=== PATIENT | male | born 1970 | race African-American/Black ===

== ENCOUNTER → 2018-02-25 | Day surgery (SDC) | payer MEDICARE, MEDICAID ==
[2018-02-24 09:08] VITALS: BMI 20.3
[~2018-02-25] MED LIST: Midazolam HCl 2 mg/2 ml Vial ONE; PROPOFOL 200 MG/20 ML VIAL ONE
--- NOTE | 2018-02-25 15:41 | MRI ---
BRAIN MRI WITH AND WITHOUT CONTRAST: Date: 02/25/18 HISTORY: New onset seizure. High fevers at . 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 Unspecified nystagmus. COMPARISON: None. TECHNIQUE: Brain MRI is performed with and without intravenous Gadolinium administration. Multisequential, multi planar imaging is performed. FINDINGS: Calvarium has a normal T1 marrow signal intensity. Midline brain parenchymal structures are unremarka ble. No parenchymal mass, mass effect, or midline shift. Brain volume is age-appropriate. Cortical villalobos-wh ite matter differentiation is preserved. Ventricles and sulci appear to be patent and symmetric. Note is made of a partially empty sella. Central arterial flow-voids are maintained. Absent restricted diffusion. Minimal white matter hyperintensities on the coronal FLAIR sequence are nonspecific and may be due to chronic small vessel ischemic change. No hemorrhage on the coronal GRE images. Visualized optic chiasm and prechiasmatic optic nerves are unremarkable.. No pathologic enhancement of the brain parenchyma. IMPRESSION: 1. No pathologic enhancement of the brain parenchyma. POS: ELI
== END ==
LOC: SDC/OP 10:23
PROVIDERS: ATTEND Family Medicine
DX: G40.209 Localization-related (focal) (partial) symptomatic epilepsy and epileptic syndromes with complex partial seizures, not intractable, without status epilepticus (principal); H55.00 Unspecified nystagmus; Z79.899 Other long term (current) drug therapy; Z88.0 Allergy status to penicillin
CPT/HCPCS: 70553; J2250; J2704

== ENCOUNTER 2018-03-28 10:13 | Day surgery (SDC) | payer MEDICARE, MEDICAID ==
[2018-03-27 13:26] VITALS: BMI 20.1
[2018-03-28] MEDS ORDERED: Midazolam HCl 2 mg/2 ml Vial ONE (11:15)
--- NOTE | 2018-03-28 13:57 | CT ---
NONCONTRAST CT LUMBAR SPINE: Date: 03/28/18 HISTORY: Abnormality of gait. Wheelchair bound. TECHNIQUE: Contiguous axial CT images are obtained through the lumbar spine from the T12-L1 level to the upper s acrum. Sagittal and coronal reformatted images are provided. FINDINGS: There is a nonobstructing inferior pole left renal calculus measuring 4.0 mm. Remainder of the retrop eritoneal structures demonstrate a grossly normal nonenhanced CT appearance. There are scattered Schmorl's nodes seen within the lumbar vertebral bodies. Vertebral body heights a re within normal limits. There is no fracture or subluxation seen involving the lumbar spine. L1-2 Level: There is a mild disc osteophyte complex which only results in slight effacement of the v entral aspect of the thecal sac. Neural foramina are patent. L2-3 Level: There is a mild disc osteophyte complex present. This results in mild effacement of the ventral aspect of the thecal sac, but the neural foramina are patent. L3-4 Level: There is a mild broad based disc osteophyte complex with mild facet degenerative changes . There is generalized narrowing of the central spinal canal. There is mild bilateral neural foramina l narrowing present. L4-5 Level: There is a broad based disc osteophyte complex and mild facet degenerative changes. Gene ralized narrowing of central spinal canal. Findings result in mild to moderate bilateral neural marian inal narrowing. L5-S1 Level: There is a mild disc osteophyte complex with facet hypertrophic change and ligamentous thickening. Generalized mild narrowing of the central spinal canal. There is encroachment on the bila teral traversing S1 nerve roots. Mild to moderate bilateral neural foraminal narrowing is present. IMPRESSION: 1. Degenerative changes throughout the lumbar spine, greatest involving the lower lumbar spine. 2. Nonobstructing left renal calculus. POS: WALTER
== END 2018-03-28 13:48 | disposition home or self-care (01) ==
LOC: SDC/OP 10:13
PROVIDERS: ATTEND Family Medicine
DX: R26.9 Unspecified abnormalities of gait and mobility (principal); M51.46 Schmorl's nodes, lumbar region; M48.061 Spinal stenosis, lumbar region without neurogenic claudication; M25.78 Osteophyte, vertebrae; N20.0 Calculus of kidney; Z79.899 Other long term (current) drug therapy; Z88.0 Allergy status to penicillin; Z99.3 Dependence on wheelchair
CPT/HCPCS: 72131; J2250

== ENCOUNTER 2018-11-27 15:48 | Outpatient (CLI) | payer MEDICARE, MEDICAID ==
--- NOTE | 2018-11-27 17:07 | RAD ---
EXAM: CHEST TWO VIEWS: 11/27/18 HISTORY: Dyspnea, primary spontaneous pneumothorax. Postoperative changes are noted in the right chest. Minimal blunting of the right costophrenic angle. No evidence for significant pneumothorax. Heart size is normal. The left lung is clear. IMPRESSION: Postoperative changes right chest with some blunting of the right costophrenic angle without signific ant pneumothorax. POS: WALTER
== END 2018-11-27 15:49 | disposition home or self-care (01) ==
LOC: RAD 15:48
PROVIDERS: ATTEND Thoracic Surgery (Cardiothoracic Vascular Surgery)
DX: J93.11 Primary spontaneous pneumothorax (principal); Z98.890 Other specified postprocedural states
CPT/HCPCS: 71046

== ENCOUNTER 2019-08-05 06:51 | Day surgery (SDC) | payer MEDICARE, MEDICAID ==
[2019-08-04 17:24] VITALS: BMI 21.2
[2019-08-05] MEDS ORDERED: Midazolam HCl 2 mg/2 ml Vial ONE ×2 (08:17→08:49)
[2019-08-05] MEDS ORDERED: PHENYLEPHRINE-NS 100 MCG/ML 10 ML SYRINGE ONE ×2 (09:39→10:08)
[2019-08-05] MEDS ORDERED: EPHEDRINE 25 MG/5 ML SYRINGE ONE ×2 (09:39→10:08)
[2019-08-05] MEDS ORDERED: PROPOFOL 200 MG/20 ML VIAL ONE (10:08)
--- NOTE | 2019-08-05 11:37 | OP ---
DATE OF PROCEDURE: 08/05/2019 PROCEDURE PERFORMED: Colonoscopy (incomplete). INDICATIONS FOR PROCEDURE: Screening for malignant neoplasm of the colon (average risk). DESCRIPTION OF PROCEDURE: After the risks and benefits of the procedure were explained to the patient's surrogate including risk of bleeding, infection, perforation, reactions to anesthesia, aspiration, and/or pain, informed consent was obtained. The patient was then taken to the endoscopy suite, where he was placed in the left lateral decubitus position, followed by introduction of deep sedation via propofol and anesthesia support. Once adequate sedation was achieved, a digital rectal examination was performed followed by introduction of the standard colonoscope, which was then advanced to the proximal transverse colon with further progress impeded by significant amount of retained solid and liquid stool. The quality of the prep was poor with poor visualization of the colonic mucosa, especially in the proximal transverse, mid descending, and sigmoid colon and rectum. The patient tolerated the procedure well with no immediate perioperative complications. Upon conclusion of the procedure, all equipment was removed from the patient and he was transferred to Day Stay in satisfactory condition. FINDINGS: Digital rectal exam: Normal findings were seen on external examination. Colon findings: A large amount of retained solid and liquid stool was seen throughout the entire colon, but especially within the proximal transverse, descending, sigmoid colon, and rectum. Despite aggressive irrigation and suctioning, this could not be removed of the mucosa seen (approximately 60%). There was no evidence of colon polyps or colon cancer in the transverse, descending, sigmoid colon, and rectum. Small internal hemorrhoids were seen on rectal retroflexion. IMPRESSION: 1. Poor colonic stool preparation impeding visualization of the colonic mucosa. 2. Small internal hemorrhoids. RECOMMENDATIONS: 1. Would attempt repeat colonoscopy at a later date with 2 days of clear liquids prior to GoLYTELY prep. Would consider 2 days of GoLYTELY prep given the patient's personal history of significant constipation. 2. Would continue MiraLAX daily as part of his bowel regimen as an outpatient. 3. Continue higher fiber diet. 4. Would have the patient follow up in the [facility] after repeat colonoscopy if needed. Job ID: [id number]
== END 2019-08-05 10:06 | disposition home health service (06) ==
LOC: SDC 06:51
PROVIDERS: ATTEND Internal Medicine
PROC: 0DJD8ZZ Inspection of Lower Intestinal Tract, Via Natural or Artificial Opening Endoscopic (ICD-10-PCS; principal; 2019-08-05)
DX: K64.8 Other hemorrhoids (principal); G40.909 Epilepsy, unspecified, not intractable, without status epilepticus; F73 Profound intellectual disabilities; Z79.899 Other long term (current) drug therapy; Z88.0 Allergy status to penicillin
CPT/HCPCS: J2250; J2704